=== PATIENT | female | born 1955 | race Caucasian/White ===

== ENCOUNTER 2019-09-01 18:55 | Day surgery (SDC) | payer BC ==
[~2019-09-01 18:55] MED LIST: Bupivacaine PF 0.75% SDV 10 ML ONE; CEFAZOLIN 1 GM VIAL ONE; Enoxaparin Sodium 30 MG/0.3 ML SYRINGE ONE; Lidocaine 1% PF 5 ML VIAL ONE; Lidocaine 4% PF 5 ML AMP ONE; Maxitrol 0.1% Opth Oint 3.5 GM TUBE ONE; PROPOFOL 200 MG/20 ML VIAL ONE; Triamcinolone 40 MG/ML VIAL ONE
[2019-09-01] MEDS ORDERED: Phenylephrine 2.5% Ophth Soln 5 ML BOT ONE (19:13)
[2019-09-01] MEDS ORDERED: Cyclopentolate 1% Opth Drop 2 ML BOT ONE (19:13)
[2019-09-01] MEDS ORDERED: Fluorouracil 100 MG, Enoxaparin Sodium 25 MG, EPINEPHrine 0.3 MG in Ophthalmic Irrigati... IRR SCH (19:15)
[2019-09-01] MEDS ORDERED: Fentanyl 100 MCG/2 ML VIAL ONE (19:34)
[2019-09-01] MEDS ORDERED: Midazolam HCl 2 mg/2 ml Vial ONE (19:34)
--- NOTE | 2019-09-02 01:29 | OP ---
DATE OF PROCEDURE: 09/01/2019 PREOPERATIVE DIAGNOSIS: Rhegmatogenous retinal detachment, right eye. POSTOPERATIVE DIAGNOSIS: Rhegmatogenous retinal detachment, right eye. PROCEDURE PERFORMED: Pars plana vitrectomy, retinal detachment repair, right eye. ANESTHESIA: Local with monitored anesthesia care. PROCEDURE IN DETAIL: The patient was identified in the preoperative holding area. Appropriate informed consent for the planned surgical procedure on the right eye had been obtained. The patient was transported to the operative suite where appropriate cardiopulmonary monitoring established. Local anesthesia was obtained using retrobulbar modified Van Lint lid block using 50:50 mixture of 4% lidocaine, 0.75% bupivacaine. The patient was prepped and draped in usual sterile manner for ophthalmic surgery, right eye. Lid speculum was placed in the right eye. A 25-gauge trocar was placed in conjunctiva and sclera superotemporally, inferotemporally, supranasally. Infusion line was placed inferotemporally. Light pipe and vitreous cutter were inserted into the eye. Core vitrectomy was performed. Vitreous base was trimmed back 360 degrees using wide field viewing system. A tear was noted at the 10 o'clock position. Posterior drain was created along the 10 o'clock meridian along the supratemporal arcade. 360 laser was placed with exclusion of the retinal detachment. Complete air-fluid exchange was performed and the laser was completed superotemporally. 28% sulfur hexafluoride gas was infused into the eye. Trocars were removed. Eye was noted to retain pressure well. Retrobulbar Kenalog and subconjunctival Ancef were placed. Antibiotic ointment placed. Eye was patched and shielded. The patient was taken to postop recovery unit in good condition having suffered no immediate perioperative complications. The patient was instructed to keep patch and shield on, avoid lifting or bending, positioning right side down, followup appointment with Dr. Pittman. Job ID: [id number]
== END 2019-09-01 21:45 | disposition home or self-care (01) ==
LOC: SDC/OP 18:55
PROVIDERS: ATTEND Ophthalmology Retina Specialist
PROC: 08T43ZZ Resection of Right Vitreous, Percutaneous Approach (ICD-10-PCS; principal; 2019-09-01)
DX: H33.001 Unspecified retinal detachment with retinal break, right eye (principal); Z88.5 Allergy status to narcotic agent
CPT/HCPCS: 67025; J0171; J0690; J1650; J2001; J2250; J2704; J3010; J3301; J3490; J9190

== ENCOUNTER 2020-09-17 16:38 | Day surgery (SDC) | payer BC ==
[~2020-09-17 16:38] MED LIST changes: -Bupivacaine PF 0.75% SDV 10 ML ONE; -CEFAZOLIN 1 GM VIAL ONE; +Cyclopentolate 1% Opth Drop 2 ML BOT FS SCH; -Enoxaparin Sodium 30 MG/0.3 ML SYRINGE ONE; +Fluorouracil 100 MG, Enoxaparin Sodium 25 MG, EPINEPHrine 0.3 MG in Ophthalmic Irrigati... IRR SCH; -Lidocaine 1% PF 5 ML VIAL ONE; -Lidocaine 4% PF 5 ML AMP ONE; -Maxitrol 0.1% Opth Oint 3.5 GM TUBE ONE; -PROPOFOL 200 MG/20 ML VIAL ONE; +Phenylephrine 2.5% Ophth Soln 5 ML BOT FS SCH; -Triamcinolone 40 MG/ML VIAL ONE
[2020-09-17] MEDS ORDERED: Phenylephrine 2.5% Ophth Soln 5 ML BOT ONE (17:09)
[2020-09-17] MEDS ORDERED: Cyclopentolate 1% Opth Drop 2 ML BOT ONE (17:09)
[2020-09-17] MEDS ORDERED: Fentanyl 100 MCG/2 ML VIAL ONE (18:45)
[2020-09-17] MEDS ORDERED: Triamcinolone 40 MG/ML VIAL ONE (19:06)
[2020-09-17] MEDS ORDERED: Bupivacaine PF 0.75% SDV 10 ML ONE (19:06)
[2020-09-17] MEDS ORDERED: Lidocaine 1% PF 5 ML VIAL ONE (19:06)
[2020-09-17] MEDS ORDERED: PROPOFOL 200 MG/20 ML VIAL ONE (19:06)
[2020-09-17] MEDS ORDERED: CEFAZOLIN 1 GM VIAL ONE (19:06)
[2020-09-17] MEDS ORDERED: Ondansetron PF 4 MG/2 ML Vial ONE (19:06)
[2020-09-17] MEDS ORDERED: Enoxaparin Sodium 30 MG/0.3 ML SYRINGE ONE (19:06)
[2020-09-17] MEDS ORDERED: Lidocaine 4% PF 5 ML AMP ONE (19:06)
== END 2020-09-17 22:36 | disposition home or self-care (01) ==
LOC: SDC 16:38
PROVIDERS: ATTEND Ophthalmology Retina Specialist
PROC: 08QF3ZZ Repair Left Retina, Percutaneous Approach (ICD-10-PCS; principal; 2020-09-17)
PROC: 08T53ZZ Resection of Left Vitreous, Percutaneous Approach (ICD-10-PCS; principal; 2020-09-17)
DX: H33.022 Retinal detachment with multiple breaks, left eye (principal); Z88.5 Allergy status to narcotic agent
CPT/HCPCS: 67025; J0171; J0690; J1650; J2405; J2704; J3010; J3301; J3490; J9190